=== PATIENT | male | born 1955 | race Caucasian/White ===

== ENCOUNTER → 2016-11-03 | Outpatient (CLI) | payer BC ==
[~2016-11-03] MED LIST: ACET-749 PO; ADVIN25/60 INH; ALBUAER2 INH; ASPI81TA28 PO; DIPH1TAB PO; FEXO1TAB46 PO; HYDR25TA4 PO; LISI-793 PO; PRED10TA PO; TRIA0.5O TOP
[2016-11-03 16:52] LABS: PROTHROMBIN TIME (PATIENT) 10.6 SECONDS (9.0-12.0)
[2016-11-03 17:06] LABS: HEMATOCRIT 46.9 % (42-52); MEAN CELL VOLUME 92.7 fL (80-100); MEAN CORPUSCULAR HEMOGLOBIN 32.6 pg (25-34); MEAN CORPUSCULAR HGB CONC 35.2 g/dl (32-36); PLATELET COUNT 125 K/uL (130-400); RED BLOOD COUNT 5.06 M/uL (4.7-6.1); WHITE BLOOD COUNT 7.34 K/uL (4.8-10.8)
[2016-11-03 17:09] LABS: BASO ABS # 0.07 K/uL (0-0.2); COMPLETE YES; EOS % 3.4 %; IG% 0.3 %; LYMPH % 12.8 %; LYMPH ABS # 0.94 K/uL (1.2-3.4); MONO % 7.6 %; NEUT % 74.9 %; PLT ESTIMATE DECREASED
[2016-11-03 17:32] LABS: ALB/GLOB RATIO 1.2 (0.9-2); ALKALINE PHOSPHATASE 74 U/L (45-117); ALT/SGPT 36 U/L (12-78); AST/SGOT 30 U/L (15-37); BLOOD UREA NITROGEN 26 mg/dl (7-18); BUN/CREATININE RATIO 18.7 (10-20); CARBON DIOXIDE 25 mmol/L (21-32); CHLORIDE 107 mmol/L (98-107); CHOLESTEROL 170 mg/dl (0-200); CHOLESTEROL/HDL RATIO 2.3; GLUCOSE 109 mg/dl (70-99); HDL CHOLESTEROL 73 mg/dl; LDL CHOLESTEROL CALCULATED 37 mg/dl; POTASSIUM 3.5 mmol/L (3.5-5.1); SODIUM 142 mmol/L (136-145); TRIGLYCERIDES 301 mg/dl (0-150); VERY LOW DENSITY LIPOPROT CALC 60 mg/dl
== END | disposition home or self-care (01) ==
LOC: C.LAB1850 15:52
PROVIDERS: ATTEND Internal Medicine Cardiovascular Disease
DX: D72.829 Elevated white blood cell count, unspecified (principal); I10 Essential (primary) hypertension; Z13.220 Encounter for screening for lipoid disorders; Z01.818 Encounter for other preprocedural examination

== ENCOUNTER 2016-11-13 07:38 | Observation (INO) | payer BC ==
[~2016-11-13] VITALS: Ht 180.3 cm; Wt 86.0 kg
[~2016-11-13 07:38] MED LIST changes: -ACET-749 PO; +CEFAZOLIN 1000MG/55 ML D5W IV SCH; -DIPH1TAB PO; +LACTATED RINGER'S 1000ML 1,000 ML IV SCH; +VANCOMYCIN 1GM/270ML NSS IV SCH
[2016-11-13] MEDS ORDERED: DIPH1TAB87 PO (08:06)
[2016-11-13 08:07] VITALS: BP 156/95; PULSE 60; TEMP 36.4; O2SAT 96; BMI 27.0
--- NOTE | 2016-11-13 09:37 | History & Physical Bridge Note ---
H&P Re-Evaluation Bridge Note: I have examined the patient, reviewed the History & Physical and in the interval since the performance of the History & Physical I have noted the following changes of clinical significance: No changes noted. I reviewed the indications, procedure, risks and alternatives with the patient and his family and they understand and he agrees to proceed. Consent obtained.
--- NOTE | 2016-11-13 09:38 | Procedure Note ---
Pre-Mod Sedation Assessment General Date of Moderate Sedation: Nov 13, 2016. Vital Signs: Vital Signs Past 12 Hours Date Time Temp Pulse Resp B/P Pulse Ox O2 Delivery O2 Flow Rate FiO2 11/13/16 08:07 36.4 60 18 156/95 96 Room Air Review Cardiovascular: regular rate, rhythm Abdomen: normal bowel sounds Lungs: lungs clear Pre-Sedation Airway Assessment Oral Cavity: Chipped Teeth Smoking Status: Never Smoker Procedure Planning Contraindications-for Mod Sed: None Yes Notes The planned sedation has been discussed with the patient and consent obtained. I have identified the patient, determined the appropriateness of sedation and have assessed the patient immediately prior to the procedure. All medicine(s) and interventions are by my order.
[2016-11-13] MEDS ORDERED: LIDOCAINE HCL 1% 20 ML VIAL ONE (09:44)
[2016-11-13] MEDS ORDERED: BACITRACIN 50000 UNIT VIAL ONE (09:44)
[2016-11-13] MEDS ORDERED: BACITRACIN OINT 0.9 GM PKT ONE (09:44)
[2016-11-13] MEDS ORDERED: MIDAZOLAM HCL 5 MG/ML 1 ML VIAL ONE ×2 (10:07→10:20)
[2016-11-13] MEDS ORDERED: FENTANYL CITRATE INJ 50 MCG/1 ML 2 ML VIAL ONE ×2 (10:07→10:20)
[2016-11-13] MEDS ORDERED: KEFZOL SPECIAL PROCEDURE STOCK 1 GM ADDVIAL IV ONE (10:12)
--- NOTE | 2016-11-13 11:20 | Procedure Note ---
Post-Mod Sedation Assessment General Date of Moderate Sedation Nov 13, 2016. Vital Signs: Vital Signs Past 12 Hours Date Time Temp Pulse Resp B/P Pulse Ox O2 Delivery O2 Flow Rate FiO2 11/13/16 08:07 36.4 60 18 156/95 96 Room Air Review - Discharge Criteria Vital Signs Stable: Yes Alert/Oriented/Conversant: Yes Returned to Baseline Mental St: Yes Nausea Absent/Minimal: Yes Pain/Discomfort/Absent/Minimal: Yes Normal/Baseline Respirations: Yes Active Bleeding?: No
--- NOTE | 2016-11-13 11:23 | Cardiology Procedure Brief Nt ---
Preliminary Cardiology Note Procedure Date Nov 13, 2016. Pre-Procedure Diagnosis sinus node dysfunction Post-Procedure Diagnosis same Procedure(s) Performed Dual chamber pacemaker implantation Loop recorder explantation Expense Clerk Dr. Balderas Purler(s) none Estimated Blood Loss 20 cc Preliminary Findings Good lead position on pacemaker, good measurements. Successful loop explantation. Recommendations Monitor overnight Specimens Old loop recorder, return to Medtronic Anesthesia local with sedation Complication(s) None Disposition PCU
[2016-11-13] MEDS ORDERED: ACETAMINOPHEN 325 MG TAB PO PRN (11:30)
[2016-11-13] MEDS ORDERED: FEXOFENADINE HCL 180 MG TAB PO PRN (11:30)
[2016-11-13] MEDS ORDERED: KETOROLAC TROMETHAMINE 10 MG TAB PO PRN (11:30)
[2016-11-13 12:10] VITALS: BP 161/90; PULSE 62; TEMP 36.4; O2SAT 98; Ht 180.3 cm; Wt 86.0 kg
--- NOTE | 2016-11-13 12:36 | OPERATIVE REPORT ---
DATE OF OPERATION: 11/13/2016 PREOPERATIVE DIAGNOSES: 1. Sinus node dysfunction. 2. Syncope. POSTOPERATIVE DIAGNOSES: Same. PROCEDURES: 1. Dual chamber pacemaker implantation. 2. Loop recorder explantation. SURGEON: Rommel Balderas M.D. ANESTHESIA: Local with sedation. HISTORY: This is a 61-year-old male who has a history of several episodes of syncope in October of 2014, at that time he had an extensive evaluation and ultimately had a loop recorder implanted. He has been doing well. However, on loop recorder interrogation, he was observed to have a 7-second period of sinus arrest on 09/22/2016. Given his prior syncope and this prolonged pause, it was felt best to implant a pacemaker. PROCEDURE IN DETAIL: After obtaining informed consent for the procedure, he was brought to the laboratory on the morning of 11/13/2016, being NPO after midnight. He was identified in the laboratory, prepped and draped in standard sterile manner for a left-sided pacemaker implantation. The left prepectoral region was anesthetized with 1% lidocaine local anesthetic and left subclavian venipuncture was performed by percutaneous technique and a guidewire placed through the left subclavian vein into the superior vena cava. The area was further infiltrated with 1% lidocaine local anesthetic and a 5 cm incision was made parallel to the left clavicle and 2 cm below it and carried down to the anterior pectoralis fascia. A pacemaker pocket was formed by blunt dissection anterior to the pectoralis fascia and a bacitracin-soaked sponge (50,000 units in 50 mL normal saline solution) was placed in the pocket. An 8-British Medtronic lead introducer was placed over the guidewire into the left subclavian vein, the dilator and guidewire were removed and a bipolar active fixation steroid-tipped ventricular lead was advanced through the introducer into the superior vena cava. The guidewire was placed through the introducer and introducer stripped away from lead and guidewire. Another 8-British Medtronic lead introducer was placed over the guidewire into the left subclavian vein, the dilator and guidewire were removed and a bipolar active fixation steroid-tipped atrial lead was advanced through the introducer into the superior vena cava. The guidewire was placed through the introducer and introducer stripped away from lead and guidewire. Using a curved stylette, the ventricular lead was advanced through the right ventricular outflow tract into the pulmonary artery and then using a straight stylette, was positioned in the right ventricular apex. Once in position, the ventricular pacing threshold was evaluated in bipolar configuration at a pulse width of 0.5 milliseconds. The final ventricular pacing threshold was 0.7 volts with a current of 0.9 milliamp, 5-volt lead impedance was 917 ohms and R-waves were sensed at 5.7 millivolts. Diaphragmatic pacing was not present with a 10-volt bipolar output. The atrial lead was positioned in the region of the atrial appendage and a screw extended, fixing the lead in position. Atrial pacing threshold was evaluated in bipolar configuration at a pulse width of 0.5 milliseconds. Final atrial pacing threshold was 0.5 volts with a current of 0.9 milliamp, 5-volt lead impedance was 651 ohms and P-waves were sensed at 4.3 millivolts. Diaphragmatic pacing was not present with a 10-volt bipolar output. Once the leads were in position, they were attached to the anterior pectoralis fascia using 2 sutures of 2-0 silk around each lead collar. The bacitracin-soaked sponge was removed from the pocket, the guidewire was removed from the left subclavian vein and hemostasis was obtained. The pacemaker (Medtronic Advisa) was attached to the leads and found to be functioning normally. It was placed in the pocket with the leads coiled beneath it and the incision was closed with a running double subcutaneous closure of 3-0 Vicryl, followed by a running subcuticular skin closure of 4-0 Vicryl. Bacitracin ointment was placed on incision and a pressure dressing applied. Once the pacemaker was implanted, the area at the loop recorder implantation site was anesthetized with 1% lidocaine local anesthetic. A 1 cm incision was made through the old implant scar and carried down to the loop recorder. The loop recorder was dissected free of tissue and explanted. It is a Medtronic LINQ model LNQ11, serial #[id number]. This device will be returned to [employer]. The incision was closed with a subcutaneous closure of continuous 4-0 Vicryl, followed by a subcuticular skin closure of 4-0 Vicryl. Bacitracin ointment was placed on incision, Steri-Strips were applied and the incision was dressed. The patient tolerated the procedures well, there were no complications and estimated blood loss was 20 mL. The patient was transferred to the telemetry unit for monitoring. The atrial lead is a Medtronic model 5076, serial #[id number] and is a bipolar active fixation steroid-tipped MRI compatible lead. The ventricular lead is a Medtronic model 5076, serial #[id number] and is a bipolar active fixation steroid-tipped MRI compatible lead. The pacemaker is a Medtronic Advisa DR MRI SureScan model A2DR01, serial #[id number]. The pacemaker was reprogrammed in the laboratory to final settings. Details of the explanted loop recorder are noted above. URIAH
[2016-11-13] MEDS ORDERED: IV FLUIDS COMPLETED PRN (12:45)
[2016-11-13 15:30] VITALS: BP 169/103; PULSE 65; TEMP 36.4; O2SAT 97
[2016-11-13] MEDS ORDERED: NURSING VERBAL MED ORDER ONE (16:45)
[2016-11-13] MEDS ORDERED: METOPROLOL TARTRATE 50 MG TAB PO ONE (17:00)
[2016-11-13] MEDS ORDERED: TRIAMCINOLONE ACET 0.1% CR 80 GM TUBE EXT PRN (17:00)
[2016-11-13 19:15] VITALS: BP 150/96; PULSE 59; TEMP 36.8; O2SAT 97
[2016-11-13] MEDS: CEFAZOLIN IV 2,000 MG in DEXTROSE 5% 50ML 50 ML IV SCH (19:19)
[2016-11-13] MEDS: ACETAMINOPHEN/CODEINE 300/30MG TAB PO PRN (20:55)
[2016-11-14 00:05] VITALS: BP 137/91; PULSE 57; TEMP 36.7; O2SAT 96
[2016-11-14] MEDS: CEFAZOLIN IV 2,000 MG in DEXTROSE 5% 50ML 50 ML IV SCH ×2 (02:00→10:40)
[2016-11-14 04:00] VITALS: BP 132/90; PULSE 66; TEMP 37; O2SAT 94
[2016-11-14] MEDS: ACETAMINOPHEN/CODEINE 300/30MG TAB PO PRN ×2 (05:10→10:40)
--- NOTE | 2016-11-14 06:57 | DIAGNOSTIC IMAGING REPORT ---
CHEST 2 VIEWS ROUTINE CLINICAL HISTORY: EXACT TIME ORDERED Evaluate for pneumothorax and lead placement COMPARISON STUDY: 11/03/2014 FINDINGS: Placement of a permanent bipolar cardiac pacemaker. Leads are in good position. Lungs are clear. IMPRESSION: Placement of a permanent bipolar cardiac pacemaker. Leads in good position. No evidence pneumothorax. Electronically signed by: Salvador Donis M.D. 11/14/2016 6:56 AM Dictated Date/Time: 11/14/2016 6:55 AM
[2016-11-14 07:58] VITALS: BP 132/82; PULSE 56; TEMP 36.5; O2SAT 99
[2016-11-14] MEDS ORDERED: ACET-749 PO (08:57)
[2016-11-14] MEDS ORDERED: ASPIRIN 81 MG ECTAB PO SCH (09:00)
[2016-11-14] MEDS ORDERED: LISINOPRIL 10 MG TAB PO SCH (09:00)
[2016-11-14] MEDS ORDERED: HYDROCHLOROTHIAZIDE 25 MG TAB PO SCH (09:00)
--- NOTE | 2016-11-14 09:20 | Discharge Instructions ---
Discharge Instructions Date of Service Nov 14, 2016. Admission Sinus Node Dysfunction Discharge Discharge Diagnosis / Problem: Loop recorder explantation and dual-chamber pacemaker implantation Discharge Goals Goal(s): Improve disease control Activity Recommendations Activity Limitations: as noted below . Instructions / Follow-Up Instructions / Follow-Up ACTIVITY RECOMMENDATIONS: * Do not raise affected arm over head for 2 weeks. SPECIAL CARE INSTRUCTIONS: * If bleeding occurs, apply direct pressure to area for 5 minutes. * Call your doctor if you have severe pain, fever, drainage or bleeding at site. * Keep dressing on and dry for 48 hours then remove. * Keep any scheduled doctor's appointment. * Implant Card - hand held device with website information given. SKIN IRRITATION: * You may experience some redness and/or swelling in the area where radiation was administered. If any skin irritation occurs, please contact your family physician. FOLLOW UP VISIT: 11/18/16 @ 10 am for incision check Current Hospital Diet Patient's current hospital diet: AHA Diet (Heart Healthy) Discharge Diet Recommended Diet: AHA Diet (Heart Healthy) Pending Studies Studies pending at discharge: no Laboratory Results Lipid Panel Test 11/03/16 15:58 Range/Units Triglycerides Level 301 H 0-150 mg/dl Cholesterol Level 170 0-200 mg/dl HDL Cholesterol 73 mg/dl Cholesterol/HDL Ratio 2.3 LDL Cholesterol, Calculated 37 mg/dl Medical Emergencies . Who to Call and When: Medical Emergencies: If at any time you feel your situation is an emergency, please call 911 immediately. . Non-Emergent Contact Non-Emergency issues call your: Replenishment Buyer . . "Provider Documentation" section prepared by Glenis Martinez. VTE Core Measure Inpt VTE Proph given/why not?: Treatment not indicated
--- NOTE | 2016-11-14 10:07 | Cardiology Follow-Up ---
Subjective Date of Service: Nov 14, 2016. Pt evaluation today including: conversation w/ patient, conversation w/ family , physical exam, lab review, review of studies, review of inpatient medication list History of Present Illness Doing reasonably well postop day #1, he is having difficulty with the rash on both his hands and his left hand is swollen. His arm is not. He continues to have discomfort at the incision but no swelling. No palpitations or chest discomfort. Social History Smoking Status: Never Smoker History of Alcohol Use: Yes (VODKA, OCCASIONALLY) Review of Systems Respiratory: No shortness of breath Cardiac: No chest pain Left hand swelling Objective Vital Signs Past 12 Hours Date Time Temp Pulse Resp B/P Pulse Ox O2 Delivery O2 Flow Rate FiO2 11/14/16 07:58 36.5 56 18 132/82 99 11/14/16 04:06 Room Air 11/14/16 04:00 37.0 66 20 132/90 94 Room Air 11/14/16 00:05 36.7 57 20 137/91 96 Room Air 11/14/16 00:01 Room Air Last Recorded Weight-Kilograms: 86.000 Intake & Output 8-Hour Column 11/13/16 11/13/16 11/14/16 15:59 23:59 07:59 Intake Total 746 ml 550 ml 185 ml Balance 746 ml 550 ml 185 ml 24-Hour Column 11/14/16 07:59 Intake Total 1481 ml Balance 1481 ml Physical Exam Constitutional: General Apperance: heathly-appearing Lungs: Auscultation: breath sounds normal Cardiovascular: Heart Auscultation: RRR, no rubs Extremities: pertinent finding (The dorsum of his left hand is swollen, his left arm does not seem to be and veins are not prominent. ) The incision looks clean and dry. No swelling or ecchymosis. Data Laboratory Results: Last 24 Hours Test 11/13/16 14:12 Hepatitis C Antibody Screen NEG Imaging: Chest x-ray shows good lead position, no pneumothorax EKG: Sinus rhythm, pacemaker appropriately inhibited Telemetry reviewed: Normal pacemaker function, predominantly inhibited operation Left arm ultrasound: No DVT Pacemaker evaluation: Excellent pacing and sensing characteristics Assessment and Plan #1. Postop day #1 pacemaker implantation: He is having some incisional discomfort, there does not appear to be anything wrong with the site and he has been having discomfort since device implantation. I don't believe there is any issue with the site. The x-ray looks good. Device evaluation demonstrates excellent function. #2. Left hand swelling: His left hand is swollen, however his arm is not. Ultrasound of the left upper extremity is negative for DVT. The hand swelling is probably related to the IV and his rash. No further specific treatment unless it worsens. We will plan on sending him home today with outpatient follow-up.
[2016-11-14 11:30] VITALS: BP 148/95; PULSE 66; TEMP 36.6; O2SAT 95
--- NOTE | 2016-11-14 13:39 | DIAGNOSTIC IMAGING REPORT ---
LEFT UPPER EXTREMITY VENOUS DOPPLER ULTRASOUND CLINICAL HISTORY: Left hand swelling status post pacemaker insertion. COMPARISON STUDY: No previous studies for comparison. FINDINGS: The left internal jugular, subclavian, axillary, brachial, basilic, radial and ulnar veins were patent. No thrombus was identified within the left upper extremity venous system. Portions of the left subclavian vein were obscured by overlying bandage. IMPRESSION: No deep venous thrombus within the left upper extremity. Electronically signed by: Ton Garnett M.D. 11/14/2016 1:38 PM Dictated Date/Time: 11/14/2016 1:37 PM
[2016-11-14 13:47] VITALS: BP 148/95; PULSE 66; TEMP 36.6; O2SAT 95
--- NOTE | 2016-11-21 08:34 | Discharge Summary ---
Discharge Summary Admission Date: Nov 13, 2016 at 11:26 Discharge Date: Nov 14, 2016 Discharge Disposition: Home Primary Diagnosis: Sinus node dysfunction Secondary Diagnoses/Problems: Syncope Procedures: Loop recorder explantation and dual-chamber pacemaker implantation Discharge Instructions Last Recorded Wt (Kilograms): 86.000 Activity Recommendations: limitations as noted below Allergies: Coded Allergies: No Known Allergies (Unverified , 11/13/16) Additional Instructions: ACTIVITY RECOMMENDATIONS: * Do not raise affected arm over head for 2 weeks. SPECIAL CARE INSTRUCTIONS: * If bleeding occurs, apply direct pressure to area for 5 minutes. * Call your doctor if you have severe pain, fever, drainage or bleeding at site. * Keep dressing on and dry for 48 hours then remove. * Keep any scheduled doctor's appointment. * Implant Card - hand held device with website information given. SKIN IRRITATION: * You may experience some redness and/or swelling in the area where radiation was administered. If any skin irritation occurs, please contact your family physician. FOLLOW UP VISIT: Keep any scheduled doctor appointments. Special Care: Call your doctor if: * Temperature above 101 degrees * Pain not relieved by pain medicine ordered * There is increased drainage or redness from any incision * You have any unanswered questions or concerns. Avoid all tobacco products. If you need help to stop smoking, call [place]'s FREE QUITLINE at . This is a free call. Admission HPI This is a 61-year-old male who has a history of several episodes of syncope in October of 2014, at that time he had an extensive evaluation and ultimately had a loop recorder implanted. He has been doing well. However, on loop recorder interrogation, he was observed to have a 7-second period of sinus arrest on 01/2017. Given his prior syncope and this prolonged pause, it was felt best to implant a pacemaker. Admission Physical Exam In general this is a well-developed well-nourished white male in no acute distress. HEENT exam is negative. Neck reveals normal carotid upstrokes without bruits. Jugular venous pressure is flat at 90. There is no thyromegaly. Cardiovascular exam reveals a regular rhythm with a normal S1 and S2. No S3, S4 , or murmurs are noted. Chest reveals a palpable device in the mid sternal region. Lungs are clear without rales, rhonchi, or wheezes. Abdomen is soft without bruits. Extremities reveal intact radial artery and posterior tibial pulses bilaterally. There is no peripheral edema. Hospital Course Patient is a 61-year-old male with a history of syncope and 7-second period of sinus arrest documented by loop recorder who underwent loop recorder explantation and dual-chamber pacemaker insertion on 11/14/[address] Balderas. He noted postoperative pain at his pacemaker insertion site, which was treated with Tylenol with Codeine. He also noted swelling of his left hand. Subsequent upper extremity ultrasound demonstrated no deep vein thrombosis. Device check showed excellent sensing and pacing characteristics. CXR showed good lead placement and no evidence of pneumothorax. He was deemed stable for discharge home on 11/14/16. He was given a script for Tylenol with Codeine upon discharge home. He will have follow-up on 11/18/16 for incision check and in 1 month for device check. Total time spent on discharge = This includes examination of the patient, discharge planning, medication reconciliation, and communication with other providers.
== END 2016-11-14 14:12 | disposition home or self-care (01) ==
LOC: C.ACU 07:38 → C.2E 11:26
PROVIDERS: ADMIT Internal Medicine Cardiovascular Disease; ATTEND Internal Medicine Cardiovascular Disease
DX: I49.5 Sick sinus syndrome (principal); R55 Syncope and collapse; M79.89 Other specified soft tissue disorders; I49.1 Atrial premature depolarization; I10 Essential (primary) hypertension; J45.909 Unspecified asthma, uncomplicated; Z87.891 Personal history of nicotine dependence; Z79.899 Other long term (current) drug therapy; Z79.82 Long term (current) use of aspirin

== ENCOUNTER → 2016-12-22 | Outpatient (CLI) | payer BC ==
[~2016-12-22] MED LIST changes: +ACET-749 PO; -CEFAZOLIN 1000MG/55 ML D5W IV SCH; +DIPH1TAB87 PO; -LACTATED RINGER'S 1000ML 1,000 ML IV SCH; -PRED10TA PO; -VANCOMYCIN 1GM/270ML NSS IV SCH
== END | disposition home or self-care (01) ==
LOC: C.LABSPEC 16:49
PROVIDERS: ATTEND Dermatology
DX: Z86.19 Personal history of other infectious and parasitic diseases (principal); R21 Rash and other nonspecific skin eruption

== ENCOUNTER → 2017-01-01 | Outpatient (CLI) | payer BC ==
--- NOTE | 2017-01-01 09:06 | DIAGNOSTIC IMAGING REPORT ---
LEFT ANKLE 3 VIEWS HISTORY: Left ankle injury COMPARISON: None. FINDINGS: No acute fracture or dislocation. Small plantar heel spur. Mild soft tissue swelling. Well-corticated ossific densities at the distal tip of the fibula. These are consistent with old avulsion injuries. No radiopaque foreign bodies. IMPRESSION: Old avulsion injuries at the lateral malleolus. No acute fracture or dislocation within the left ankle. Electronically signed by: Nik Ghosh M.D. 01/01/2017 9:05 AM Dictated Date/Time: 01/01/2017 9:03 AM
== END | disposition home or self-care (01) ==
LOC: C.RADBC 08:44
PROVIDERS: ATTEND Family Medicine
DX: S99.912A Unspecified injury of left ankle, initial encounter (principal); X58.XXXA Exposure to other specified factors, initial encounter